=== PATIENT | female | born 1965 | race Caucasian/White ===

== ENCOUNTER → 2016-09-08 | Day surgery (SDC) | payer MEDICARE ==
[~2016-09-08] MED LIST: CLARITIN10 M2 PO; EFFEXOR XR150 MG PO; NEURONTIN 300300 MG PO; SYNTHROID 25 M25 MCG PO; TOPROL XL25 MG PO; VITAMIN D32000 UNIT PO
== END | disposition home or self-care (01) ==
LOC: OR 08:52
PROVIDERS: Internal Medicine Gastroenterology
PROC: 0DJD8ZZ Inspection of Lower Intestinal Tract, Via Natural or Artificial Opening Endoscopic (ICD-10-PCS; principal; 2016-09-08 15:30)
DX: Z12.11 Encounter for screening for malignant neoplasm of colon (principal); K64.0 First degree hemorrhoids; I10 Essential (primary) hypertension; F32.9 Major depressive disorder, single episode, unspecified; F17.210 Nicotine dependence, cigarettes, uncomplicated; Z80.0 Family history of malignant neoplasm of digestive organs; Z82.49 Family history of ischemic heart disease and other diseases of the circulatory system; Z79.899 Other long term (current) drug therapy; Z98.890 Other specified postprocedural states
CPT/HCPCS: J7030